=== PATIENT | male | born 1995 | race Two or more races ===

== ENCOUNTER 2024-03-17 18:24 | Emergency (ER) | payer OTHER ==
[~2024-03-17] VITALS: Ht 180.3 cm; Wt 124.7 kg
[2024-03-17] MEDS ORDERED: TAMS0.4C PO (18:28)
[2024-03-17] MEDS ORDERED: PRILOSEC OTC20 MG (18:28)
[2024-03-17] MEDS ORDERED: HYDROCODONE/CHLORPHEN P-STIREX 5 ML ML PO STA (18:48)
[2024-03-17 19:28] LABS: HEMATOCRIT 46.3 % (39.0-48.0); MEAN CORPUSCULAR HEMOGLOBIN 29.6 pg (27.00-32.0); MEAN CORPUSCULAR HGB CONC 34.5 g/dl (32.0-36.0); PLATELET COUNT 255 K/uL (150-450); RED BLOOD COUNT 5.39 M/uL (4.00-6.00); RED CELL DISTRIBUTION WIDTH 12.9 % (11.5-14.5)
== END 2024-03-17 20:27 | disposition home or self-care (01) ==
LOC: ER 18:25
DX: J06.9 Acute upper respiratory infection, unspecified (principal); Z20.822 Contact with and (suspected) exposure to COVID-19

== ENCOUNTER 2024-07-24 18:59 | Emergency (ER) | payer OTHER ==
[~2024-07-24] VITALS: Ht 182.9 cm; Wt 127.0 kg
[~2024-07-24 18:59] MED LIST: PRILOSEC OTC20 MG; TAMS0.4C PO
[2024-07-24] MEDS ORDERED: KETOROLAC TROMETHAMINE 30 MG VIAL IM STA (21:42)
== END 2024-07-24 22:25 | disposition home or self-care (01) ==
LOC: ER 19:01
DX: S30.0XXA Contusion of lower back and pelvis, initial encounter (principal); W19.XXXA Unspecified fall, initial encounter; Y93.89 Activity, other specified; Y92.098 Other place in other non-institutional residence as the place of occurrence of the external cause; Y99.8 Other external cause status

== ENCOUNTER 2024-10-05 08:09 | Outpatient (CLI) | payer OTHER ==
[~2024-10-05 08:09] MED LIST changes: +BACTROBAN22 GM TP; +CATAFLAM50 MG PO; +PERCOCET 5/321 UDTAB PO; +SEPTRA DS TABLE1 TAB PO
== END 2024-10-05 08:25 | disposition home or self-care (01) ==
LOC: SONOGRAMA 08:09
PROVIDERS: ATTEND Internal Medicine Gastroenterology
DX: R10.9 Unspecified abdominal pain (principal)

== ENCOUNTER → 2024-10-09 | Emergency (ER) | payer OTHER ==
[~2024-10-09] VITALS: Ht 182.9 cm; Wt 122.5 kg
[~2024-10-09] MED LIST changes: +ACID REDUCER20 M1 PO; +PEPCID AC20 MG PO
[2024-10-09 18:14] LABS: HEMOGLOBIN 15.5 g/dL (13-16.00); MEAN CELL VOLUME 85.1 fL (80.0-100.00); MEAN CORPUSCULAR HEMOGLOBIN 29.4 pg (27.00-32.0); MEAN CORPUSCULAR HGB CONC 34.5 g/dl (32.0-36.0); PLATELET COUNT 268 K/uL (150-450); RED BLOOD COUNT 5.29 M/uL (4.00-6.00); RED CELL DISTRIBUTION WIDTH 13.1 % (11.5-14.5)
== END | disposition home or self-care (01) ==
LOC: ER 14:58
PROVIDERS: General Practice
DX: R05.9 Cough, unspecified (principal); J06.9 Acute upper respiratory infection, unspecified; Z20.822 Contact with and (suspected) exposure to COVID-19